=== PATIENT | male | born 1995 | race Caucasian/White ===

== ENCOUNTER 2021-11-17 15:09 | Outpatient (CLI) | payer MEDICAID, SELFPAY ==
[2021-11-17 21:45] LABS: Chloride* 96 mmol/L (96-114)
[2021-11-17 21:46] LABS: Potassium* 4.5 mmol/L (3.6-5.1); Sodium* 138 mmol/L (135-149)
[2021-11-17 21:48] LABS: Alkaline Phosphatase* 83 U/L (40-150); Aspartate Amino Transferase* 26 U/L (12-35); Bilirubin Total* 0.4 mg/dL (0.1-1.5); Blood Urea Nitrogen* 18 mg/dL (5-24); Carbon Dioxide* 29 mmol/L (20-32); Creatinine* 1.1 mg/dL (0.5-1.5); Estimated Glomerular Filt Rate 95 ml/min; Total Protein* 8.1 g/dL (6.0-8.3)
[2021-11-17 21:49] LABS: Alanine Aminotransferase* 17 U/L (4-50); Calcium* 9.6 mg/dL (8.4-10.6); Glucose* 87 mg/dL (60-115)
[2021-11-17 22:19] LABS: TSH With Reflex to FT4* 0.891 uIU/mL (0.270-4.200)
[2021-11-19 21:07] LABS: Anti-Nuclear Ab(ANA)IgG ELISA None Detected (None Detected)
== END 2021-11-17 15:10 | disposition home or self-care (01) ==
PROVIDERS: Visit Provider Physician Assistant Medical
DX: R07.9 Chest pain, unspecified (principal); R10.13 Epigastric pain; R25.1 Tremor, unspecified; R42 Dizziness and giddiness
CPT/HCPCS: 80053; 84443; 86039